=== PATIENT | male | born 1945 ===

== ENCOUNTER → 2022-01-12 11:14 | Outpatient (BNVA) | payer MEDICARE, SELFPAY | PROVIDERS: PCP Physician Assistant; Visit Provider Anesthesiology | DX: C25.9 Malignant neoplasm of pancreas, unspecified (principal); C85.90 Non-Hodgkin lymphoma, unspecified, unspecified site; G89.0 Central pain syndrome | CPT/HCPCS: 99202 ==

== ENCOUNTER 2022-02-03 06:05 | Outpatient (REF) | payer MEDICARE, SELFPAY ==
--- NOTE | ~2022-02-03 | FL_ITS ---
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 TECHNIQUE: Fluoroscopy Supervised By: Dr. Kvng Jacobsen. Fluoroscopy Time: 0.2 minutes. Cumulative Dose: 6.44 mGy. DAP: 1.75 Gycm2. Images: 2. FINDINGS: There is posterior interlaminar spinal needle approximately level L2 with tip just right of midline. There is loss of height several lower thoracic vertebral bodies. There is hardware in the lumbar spine extending beyond the [id number]. There are degenerative disc changes upper lumbar spine with prominent bridging osteophytes. FL/FL guidance in treatment room IMPRESSION: Fluoroscopy for pain management procedure.
== END 2022-02-03 06:06 | disposition home or self-care (01) ==
LOC: CF 06:05
PROVIDERS: Visit Provider Anesthesiology
DX: C25.9 Malignant neoplasm of pancreas, unspecified (principal); G89.0 Central pain syndrome
CPT/HCPCS: 62323; J2270; Q9965

== ENCOUNTER → 2022-02-04 14:25 | Outpatient (BNVA) | payer MEDICARE, SELFPAY | PROVIDERS: PCP Physician Assistant; Visit Provider Anesthesiology | DX: C25.9 Malignant neoplasm of pancreas, unspecified (principal); C85.90 Non-Hodgkin lymphoma, unspecified, unspecified site; G89.0 Central pain syndrome | CPT/HCPCS: 99212 ==